=== PATIENT | male | born 1990 | race Caucasian/White ===

== ENCOUNTER 2016-11-28 10:32 | Emergency (ER) | payer SELFPAY ==
[2016-11-28 10:51] VITALS: BP 159/89; PULSE 95; TEMP 99.1; BMI 38.5
--- NOTE | 2016-11-28 12:14 | PDOC ---
History of Present Illness - General Chief Complaint: Pain Stated Complaint: PAIN Time Seen by Provider: 11/28/16 11:06 History Source: Patient Exam Limitations: No Limitations - History of Present Illness Initial Comments: 11/28/16 12:07 Patient is a 26-year-old male, history of gout usually manifesting in the lower extremity presents with pain, stiffness and edema to the left wrist and hand. Woke up with pain yesterday that is progressively getting worse. Thought inititally may have slept on the arm wrong, but denies any trauma. Denies any shortness of breath, no chest pain. No neck pain. Past Medical History: Denies. Allergies: No known allergies Medications: Meloxicam Family History: Non-contributory Social History: Denies smoking, alcohol use, or IVDU Review of Systems GENERAL/CONSTITUTIONAL: No fever or chills. No weakness. No weight change. HEAD, EYES, EARS, NOSE AND THROAT: No change in vision. No ear pain or discharge. No sore throat. CARDIOVASCULAR: No chest pain or shortness of breath. RESPIRATORY: No cough, wheezing, or hemoptysis. GASTROINTESTINAL: No nausea, vomiting, diarrhea or constipation. No rectal bleeding. GENITOURINARY: No dysuria, frequency, or change in urination. MUSCULOSKELETAL: No joint or muscle swelling or pain. No neck or back pain. SKIN : No rash or easy bruising. NEUROLOGIC: No headache, vertigo, loss of consciousness, or loss of sensation. Physical Exam: GENERAL: The patient is awake, alert, and fully oriented, in no acute distress. LUNGS: Breath sounds equal, clear to auscultation bilaterally. No wheezes, and no crackles. HEART: Regular rate and rhythm, normal S1 and S2 without murmur, rub or gallop. ABDOMEN: Soft, nontender, normoactive bowel sounds. No guarding, no rebound. No masses. No bruising or abrasions MUSCULOSKELETAL: Normal range of motion, no edema. No clubbing or cyanosis. No cords, erythema, or tenderness. No CVA Tenderness with fist. NEUROLOGICAL: Cranial nerves II through XII grossly intact. Normal speech, normal gait. SKIN: Warm, Dry, normal turgor, no rashes or lesions noted. Edema, pain to left wrist and hand, no erythema no warmth. Past History - Past Medical History Allergies/Adverse Reactions: Allergies Allergy/AdvReac Type Severity Reaction Status Date / Time No Known Allergies Allergy Verified 11/28/16 10:48 Home Medications: Ambulatory Orders Indomethacin [Indocin -] 50 mg PO TID #21 capsule 11/28/16 Asthma: Yes - Suicide/Smoking/Psychosocial Hx Smoking Status: No Smoking History: Never smoked Have you smoked in the past 12 months: No Number of Cigarettes Smoked Daily: 0 Information on smoking cessation initiated: No Hx Alcohol Use: No Drug/Substance Use Hx: No Substance Use Type: None *Physical Exam - Vital Signs Last Vital Signs Temp Pulse Resp BP Pulse Ox 99.1 F 95 H 18 159/89 100 11/28/16 10:48 11/28/16 10:48 11/28/16 10:48 11/28/16 10:48 11/28/16 10:48 ED Treatment Course - ADDITIONAL ORDERS Additional order review: Laboratory Results 11/28/16 11:22 Uric Acid 8.3 H - RADIOLOGY Radiology Studies Ordered: Category Date Time Status WRIST W/HAND-LEFT* [RAD] Stat Radiology 11/28/16 11:06 Completed Medical Decision Making - Medical Decision Making 11/28/16 12:15 A/P: Patient here for evaluation of nontraumatic swelling and pain to left hand and wrist, no erythema no warmth to area. Does have history of gout however usually manifest and lower extremity Plan: Uric acid Xray X-rays negative for acute pathology, no bony injury, significant soft tissue swelling. Uric acid is 8.3 Laboratory Tests 11/28/16 11:22 Uric Acid 8.3 H Swelling and edema most likely gout will DC patient on Indomethacin. Culture seen 1.2 given in emergency department, 0.6 to be taken in one hour after prescription for indomethacin given to patient, arm sling placed on, patient to follow-up with PMD on Wednesday. Discontinue medication if any stomach upset, vomiting, bleeding, or any other concerns. I discussed the physical exam findings, ancillary test results and final diagnoses with the patient. I answered all of the patient's questions. The patient was satisfied with the care received and felt comfortable with the discharge plan and treatment plan. The patient will call to arrange follow-up and will return to the Emergency Department with any new, persistent or worsening symptoms. *DC/Admit/Observation/Transfer Diagnosis at time of Disposition: Gout attack Qualifiers: Gout site: wrist Gout etiology: unspecified cause Laterality: left Qualified Code(s): M10.9 - Gout, unspecified; M10.9 - Gout, unspecified - Discharge Dispostion Disposition: HOME Condition at time of disposition: Good Admit: No - Prescriptions Prescriptions: Indomethacin [Indocin -] 50 mg PO TID #21 capsule - Referrals Referrals: [facility] [Provider Group] - Patient Instructions Printed Discharge Instructions: Gout (Alternative Therapy), DI for Gout Additional Instructions: Please follow-up with your primary care doctor on Wednesday, please take medication as prescribed. If any increased pain, abdominal pain, vomiting, bleeding, or any other concerns discontinue medication immediately. Take medication with food Ice and elevate extremity when at rest - Post Discharge Activity Forms/Work/School Notes: Back to Work
[2016-11-28] MEDS ORDERED: COLCHICINE 0.6 MG TABLET (FP) PO ONE ×2 (12:37)
[2016-11-28] MEDS ORDERED: INDOMETHACIN 50 MG CAPSULE PO ONE (12:38)
[2016-11-28] MEDS ORDERED: COLCHICINE 0.6 MG TABLET (FP) ONE (12:40)
== END 2016-11-28 13:11 | disposition home or self-care (01) ==
LOC: JERFT 10:32
DX: M10.9 Gout, unspecified (principal)
CPT/HCPCS: 36415; 73110-TC-LT; 73130-TC-LT; 84550; 99281-25

== ENCOUNTER 2017-06-28 20:44 | Emergency (ER) | payer SELFPAY ==
[2017-06-28 20:51] VITALS: BP 150/100; TEMP 99; BMI 37.2
--- NOTE | 2017-06-28 20:51 | PDOC ---
Rapid Medical Evaluation Time Seen by Provider: 06/28/17 20:47 Medical Evaluation: Allergies Allergy/AdvReac Type Severity Reaction Status Date / Time No Known Allergies Allergy Verified 11/28/16 10:48 06/28/17 20:47 I have performed a brief in-person evaluation of this patient. The patient presents with a chief complaint of: sudden onset SOB Pertinent physical exam findings: Lungs CTAB I have ordered the following: ekg, labs, cxr The patient will proceed to the ED for further evaluation. Discharge Disposition - Diagnosis SOB (shortness of breath) - Referrals - Patient Instructions - Post Discharge Activity
[2017-06-28 21:35] LABS: BASO % 1.3 % (0-2.0); EOS % 1.8 % (0-4.5); HEMATOCRIT 42.9 % (35.4-49); HEMOGLOBIN 14.2 GM/dL (11.7-16.9); LYMPH % 32.4 % (8-40); MCH 25.6 pg (25.7-33.7); MEAN CELL VOLUME 77.6 fl (80-96); MEAN PLT VOLUME 7.9 fl (7.5-11.1); MONO % 7.1 % (3.8-10.2); NEUT % 57.4 % (42.8-82.8); PLATELET COUNT 283 K/MM3 (134-434); RBC 5.54 M/mm3 (4.00-5.60); RDW 13.2 % (11.9-15.9); WHITE BLOOD COUNT 8.5 K/mm3 (4.0-10.0)
[2017-06-28 21:47] LABS: INR 0.95 (0.82-1.09); PROTHROMBIN TIME (PATIENT) 10.7 SEC (9.7-13.0)
[2017-06-28 21:57] LABS: ALBUMIN 3.9 g/dl (3.4-5.0); ANION GAP 9 (8-16); BILIRUBIN,TOTAL 0.5 mg/dL (0.2-1.0); BLOOD UREA NITROGEN 16 mg/dL (7-18); CALCIUM 8.6 mg/dL (8.5-10.1); CHLORIDE 103 mmol/L (98-107); CO2 28 mmol/L (21-32); GLUCOSE,RANDOM 120 mg/dL (74-106); MAGNESIUM 2.1 mg/dL (1.8-2.4); POTASSIUM 4.1 mmol/L (3.5-5.1); SGOT/AST 59 U/L (15-37); SGPT/ALT 90 U/L (12-78); SODIUM 140 mmol/L (136-145)
[2017-06-28] MEDS ORDERED: SODIUM CHLORIDE 1,000 ML IV ONE (21:58)
[2017-06-28 22:00] LABS: ALK PHOS 83 U/L (45-117); TOT PROT 7.3 g/dl (6.4-8.2)
--- NOTE | 2017-06-28 22:26 | PDOC ---
History of Present Illness <Ruben Hutson - Last Filed: 06/28/17 23:35> - General History Source: Patient Exam Limitations: No Limitations - History of Present Illness Initial Comments: 06/29/17 01:27 The patient is a 26 year old male, with significant past medical history of Asthma, Gout who presents to the emergency department with sudden onset of SOB today. Patient took and lemonade while driving tonight and suddenly coughed. Patient became severely dyspneic and had to casing puller on the side of the road. Patient was unable to catch his breath and reports his chest caved in. Patient reports this lasted 2-3 minutes with no exacerbating or alleviating factors before resolving. Patient reports two additional episodes, the last one as he was parking while driving and decided to come to the ED for further evaluation. States since arriving in the ED he has felt fine. Patient denies starting any new medications, Pt notes he was in [place] for the weekend and had minmal rest. Denies any prior hx of sob, shane, cp at work (he does fairly physical demanding work for [employer]) Patient denies leg swelling, hemoptysis, calf tenderness or lower extremity edema. Patient denies chest pain, palpitations, diaphoresis, headache or dizziness. Patient denies fever, chills, abdominal pain, nausea, vomit, diarrhea or constipation. Patient denies dysuria, frequency, urgency or hematuria. Patient denies sick contacts or recent travel. Allergies: NKA Past surgical history: None Social history:denies etoh, smoking, recreational drug use PCP: None <Tania Levine - Last Filed: 06/29/17 01:28> - General Chief Complaint: Shortness of Breath Stated Complaint: S.O.B Time Seen by Provider: 06/28/17 20:47 Past History - Past Medical History Asthma: Yes COPD: No - Suicide/Smoking/Psychosocial Hx Smoking Status: No Smoking History: Never smoked Have you smoked in the past 12 months: No Number of Cigarettes Smoked Daily: 0 Hx Alcohol Use: No Drug/Substance Use Hx: No Substance Use Type: None <Ruben Hutson - Last Filed: 06/28/17 23:35> <Tania Levine - Last Filed: 06/29/17 01:28> - Past Medical History Allergies/Adverse Reactions: Allergies Allergy/AdvReac Type Severity Reaction Status Date / Time No Known Allergies Allergy Verified 06/28/17 20:49 Home Medications: Ambulatory Orders Indomethacin [Indocin -] 50 mg PO TID #21 capsule 11/28/16 Review of Systems - Review of Systems Able to Perform ROS?: Yes Comments:: 06/29/17 01:27 CONSTITUTIONAL: No reported: Fever, Chills, Diaphoresis, Generalized Weakness, Malaise, Loss of Appetite HEENT: No reported: Rhinorrhea, Nasal Congestion, Throat Pain, Throat Swelling, Difficulty Swallowing, Mouth Swelling, Ear Pain, Eye Pain, Visual Changes CARDIOVASCULAR: No reported: Chest Pain, Syncope, Palpitations, Irregular Heart Rate, Lightheadedness, Peripheral Edema RESPIRATORY: +SOB. No reported: Cough, SOB with Exertion, Orthopnea, Wheezing, Stridor, Hemoptysis GASTROINTESTINAL: No reported: Abdominal pain, Abdominal Distension, Nausea, Vomiting, Diarrhea, Constipation, Melena, Hematochezia GENITOURINARY: No reported: Dysuria, Frequency, Urgency, Hesitancy, Flank Pain, Genital Pain MUSCULOSKELETAL: No reported: Myalgia, Arthralgia, Joint Swelling, Back pain, Neck Pain SKIN: No reported: Rash, Itching, Pallor HEMATOLOGIC/IMMUNOLOGIC: No reported: Easy Bleeding, Easy Bruising, Lymphadenopathy, Frequent infections ENDOCRINE: No reported: Unexplained Weight Gain, Unexplained Weight Loss, Heat Intolerance , Cold Intolerance NEUROLOGIC: No reported: Headache, Focal Weakness, Paresthesias, Vertigo, Lightheadedness, Unsteady Gait, Seizure, Mental Status Changes, Incontinence PSYCHIATRIC: No reported: Anxiety, Depression <Tania Levine - Last Filed: 06/29/17 01:28> *Physical Exam - Vital Signs Last Vital Signs Temp Pulse Resp BP Pulse Ox 99 F 115 H 20 150/100 99 06/28/17 20:50 06/28/17 20:50 06/28/17 20:50 06/28/17 20:50 06/28/17 20:50 <Ruben Hutson - Last Filed: 06/28/17 23:35> - Vital Signs Last Vital Signs Temp Pulse Resp BP Pulse Ox 99 F 90 18 150/100 98 06/28/17 20:50 06/28/17 23:40 06/28/17 23:40 06/28/17 20:50 06/28/17 23:40 - Physical Exam Comments: 06/29/17 01:27 GENERAL: The patient is awake, alert, and fully oriented, Nontoxic - in no acute distress. HEAD: Normocephalic, atraumatic. EYES: extraocular movements intact, sclera anicteric, conjunctiva clear. ENT: Normal voice, Moist mucous membranes. NECK: Normal range of motion, No JVD LUNGS: Breath sounds equal, clear to auscultation bilaterally. No wheezes, no rhonchi, no rales. HEART: mildly tachycardic (approx 105), no m/r/g ABDOMEN: Soft, nontender, No guarding, no rebound. No CVA tenderness EXTREMITIES: Normal range of motion, no edema. negative homans sign, no calf tenderness.. NEUROLOGICAL: No facial asymmetry, Normal speech, normal gait. PSYCH: Normal mood, normal affect. SKIN: Warm, Dry, normal turgor. <Tania Levine - Last Filed: 06/29/17 01:28> Heart Score/ECG Review - ECG Impressions Comment:: 06/28/17 22:24 Twelve-lead EKG was performed and reviewed by me. There is normal sinus rhythm with a rate of 104 The axis is normal. The intervals are normal. There is normal R wave progression T wave inversion in lead 3 <Ruben Hutson - Last Filed: 06/28/17 23:35> ED Treatment Course - LABORATORY CBC & Chemistry Diagram: 06/28/17 21:01 06/28/17 21:01 - ADDITIONAL ORDERS Additional order review: Laboratory Results 06/28/17 06/28/17 21:01 21:01 PT with INR 10.70 INR 0.95 Sodium 140 Potassium 4.1 Chloride 103 Carbon Dioxide 28 Anion Gap 9 BUN 16 Creatinine 1.0 D Creat Clearance w eGFR > 60 Random Glucose 120 H D Calcium 8.6 Magnesium 2.1 Total Bilirubin 0.5 D AST 59 H D ALT 90 H D Alkaline Phosphatase 83 D Creatine Kinase 281 Creatine Kinase Index 0.6 CK-MB (CK-2) 1.874 Troponin I < 0.02 Total Protein 7.3 Albumin 3.9 06/28/17 21:01 RBC 5.54 MCV 77.6 L MCHC 33.0 RDW 13.2 MPV 7.9 Neutrophils % 57.4 Lymphocytes % 32.4 Monocytes % 7.1 Eosinophils % 1.8 Basophils % 1.3 - RADIOLOGY Radiology Studies Ordered: Category Date Time Status CHEST PA & LAT [RAD] Stat Radiology 06/28/17 22:19 Ordered <CarylRuben - Last Filed: 06/28/17 23:35> - LABORATORY CBC & Chemistry Diagram: 06/28/17 21:01 06/28/17 21:01 - ADDITIONAL ORDERS Additional order review: Laboratory Results 06/28/17 06/28/17 21:01 21:01 PT with INR 10.70 INR 0.95 Sodium 140 Potassium 4.1 Chloride 103 Carbon Dioxide 28 Anion Gap 9 BUN 16 Creatinine 1.0 D Creat Clearance w eGFR > 60 Random Glucose 120 H D Calcium 8.6 Magnesium 2.1 Total Bilirubin 0.5 D AST 59 H D ALT 90 H D Alkaline Phosphatase 83 D Creatine Kinase 281 Creatine Kinase Index 0.6 CK-MB (CK-2) 1.874 Troponin I < 0.02 Total Protein 7.3 Albumin 3.9 06/28/17 21:01 RBC 5.54 MCV 77.6 L MCHC 33.0 RDW 13.2 MPV 7.9 Neutrophils % 57.4 Lymphocytes % 32.4 Monocytes % 7.1 Eosinophils % 1.8 Basophils % 1.3 - Medications Given in the ED: ED Medications Discontinued Medications Generic Name Dose Route Start Last Admin Trade Name Freq PRN Reason Stop Dose Admin Sodium Chloride 1,000 mls @ 1,000 mls/hr 06/28/17 21:58 06/28/17 22:09 Normal Saline - IV 06/28/17 22:57 1,000 mls/hr .Q1H ONE Administration <Tania Levine - Last Filed: 06/29/17 01:28> Medical Decision Making - Medical Decision Making 06/28/17 22:21 26y M hx of childhood asthma presents with complaint of intermittent SOB onset while he was driving, latsing a few minutes associated with cough while he was drinking lemonade, but started again when he was outside the hospital. Currently asymptmoatic. denies any leg swelling, cp, hemoptysis, f/c, recent URI , diaphorsis, palpitations. On exam the patient is well-appearing, in no acute distress, his vitals are noted for mild tachycardia. No PE risk factors, Wells criteria low risk, Symptoms also highly atypical of PE due to the intermittent nature lasting for minutes at a time. Blood work was obtained from triage, will obtain EKG to screen for pulmonary pathology such as pneumothorax EKG to rule out ACS, arrhythmia as IVF for his tachycardia 06/28/17 23:24 pt asymptomatic since arrival pt notes he had a tough weekend at [place] and didnt sleep at all. suspect his symptoms may have been due to fatigue/anxiety. notes he is feelin significnatly better after hydration, his heart rate is also improved currently 96 on the compliance monitor. no problems with his breathing since arrival. will dc with pmd uf pt notes that he was moni in the past his LFTs were slightly eelvated, recommended that he fu with PMD to have it checked. I discussed the physical exam findings, ancillary test results and final diagnoses with the patient. I answered all of the patient's questions. The patient was satisfied with the care received and felt comfortable with the discharge plan and treatment plan. The patient will call their primary care physician within 24 hours to arrange follow-up and will return to the Emergency Department with any new, persistent or worsening symptoms. A portion of this note was documented by scribe services under my direction. I have reviewed the details of the note, within reason, and agree with the documentation with the following case summary and management plan written by me <Ruben Hutson - Last Filed: 06/28/17 23:35> *DC/Admit/Observation/Transfer - Discharge Dispostion Decision to Admit order: No <Ruben Hutson - Last Filed: 06/28/17 23:35> - Attestations Scribe Attestion: 06/29/17 01:28 Documentation prepared by Tania Levine, acting as outside medical sales representative for Ruben Hutson MD <Tania Levine - Last Filed: 06/29/17 01:28> Diagnosis at time of Disposition: SOB (shortness of breath), Elevated liver enzymes - Discharge Dispostion Disposition: HOME Condition at time of disposition: Improved - Referrals Referrals: Brenton Bowman MD [Staff Physician] - - Patient Instructions Printed Discharge Instructions: DI for Shortness of Breath Additional Instructions: Return to the emergency department immediately with ANY new, persistent or worsening symptoms. You had slightly elevated liver enzymes please follow-up with your primary care doctor to have this reassessed You MUST call and follow up with your doctor tomorrow for further evaluation of your symptoms. Results were discussed with you. Please make sure your doctor reviews the results of your emergency evaluation. Print Language: CAMBODIAN - Post Discharge Activity Forms/Work/School Notes: Back to Work
[2017-06-28 23:41] VITALS: PULSE 90
--- NOTE | 2017-06-29 11:54 | EKG ---
Test Reason : Blood Pressure : / mmHG Vent. Rate : 104 BPM Atrial Rate : 104 BPM P-R Int : 148 ms QRS Dur : 090 ms QT Int : 314 ms P-R-T Axes : 040 011 021 degrees QTc Int : 412 ms SINUS TACHYCARDIA OTHERWISE NORMAL ECG NO PREVIOUS ECGS AVAILABLE Confirmed by MD DONALD, SKYE ([id number]) on 06/29/2017 11:53:49 AM Referred By: Confirmed By:SKYE BENNETT MD
== END 2017-06-28 23:40 | disposition home or self-care (01) ==
LOC: JER 20:44
PROC: 3E0337Z Introduction of Electrolytic and Water Balance Substance into Peripheral Vein, Percutaneous Approach (ICD-10-PCS; principal; 2017-06-28)
DX: R06.02 Shortness of breath (principal); R79.89 Other specified abnormal findings of blood chemistry
CPT/HCPCS: 36415; 71046-TC-FY; 80053; 82550; 82553; 83735; 84484; 85025; 85610; 93005; 93010; 99283-25; J7030

== ENCOUNTER 2017-09-23 11:07 | Emergency (ER) | payer SELFPAY ==
[2017-09-23 11:20] VITALS: BMI 37.2
[2017-09-23] MEDS ORDERED: COLCHICINE 0.6 MG TABLET (FP) PO ONE ×2 (11:54→13:13)
[2017-09-23] MEDS ORDERED: predniSONE 20 MG TABLET (UD) PO ONE (11:57)
[2017-09-23] MEDS ORDERED: predniSONE 20 MG TABLET (UD) ONE (12:00)
[2017-09-23] MEDS ORDERED: COLCHICINE 0.6 MG TABLET (FP) ONE ×2 (12:01→13:24)
--- NOTE | 2017-09-23 12:21 | PDOC ---
History of Present Illness - General Chief Complaint: Pain, Acute Stated Complaint: GOUT Time Seen by Provider: 09/23/17 11:32 History Source: Patient Exam Limitations: No Limitations - History of Present Illness Initial Comments: 09/23/17 13:39 Patient is a 26-year-old male with past medical history of gout, who presents to the emergency department today complaining of right ankle pain. He states that his pain started approximately 1 week ago. He states that this feels like his gout flares in the past. Patient states he has not been taking his allopurinol as he is in between insurance and could not afford it. Patient also states that he has right knee pain. He feels like he sprained it as he was compensating for his ankle pain. Denies fevers, chills, numbness and tingling to the extremities, calf pain, calf swelling, smoking history, recent travel. Past History - Travel Traveled outside of the country in the last 30 days: No Close contact w/someone who was outside of country & ill: No - Past Medical History Allergies/Adverse Reactions: Allergies Allergy/AdvReac Type Severity Reaction Status Date / Time No Known Allergies Allergy Verified 09/23/17 11:17 Home Medications: Ambulatory Orders Allopurinol [Zyloprim -] 100 mg PO DAILY #10 tab 09/23/17 Methylprednisolone [Medrol Dose Fabian] 4 mg PO ASDIR #21 tablet 09/23/17 Asthma: Yes COPD: No - Immunization History Immunization Up to Date: Yes - Suicide/Smoking/Psychosocial Hx Smoking Status: No Smoking History: Never smoked Have you smoked in the past 12 months: No Number of Cigarettes Smoked Daily: 0 Hx Alcohol Use: No Drug/Substance Use Hx: No Substance Use Type: None Review of Systems - Review of Systems Able to Perform ROS?: Yes Comments:: 09/23/17 11:54 CONSTITUTIONAL: Absent: fever, chills, diaphoresis, generalized weakness, malaise, loss of appetite HEENT: Absent: rhinorrhea, nasal congestion, throat pain, throat swelling, difficulty swallowing, mouth swelling, ear pain, eye pain, visual Changes CARDIOVASCULAR: Absent: chest pain, loss of consciousness, palpitations, irregular heart rate, peripheral edema RESPIRATORY: Absent: cough, shortness of breath, dyspnea with exertion, orthopnea, wheezing, stridor, hemoptysis GASTROINTESTINAL: Absent: abdominal pain, abdominal distension, nausea, vomiting, diarrhea, constipation, melena, hematochezia GENITOURINARY: Absent: dysuria, frequency, urgency, hesitancy, hematuria, flank pain, genital pain MUSCULOSKELETAL: Present: r ankle pain/swelling, R knee pain Absent: myalgia SKIN: Absent: rash, itching, pallor HEMATOLOGIC/IMMUNOLOGIC: Absent: easy bleeding, easy bruising, lymphadenopathy, frequent infections ENDOCRINE: Absent: unexplained weight gain, unexplained weight loss, heat intolerance, cold intolerance NEUROLOGIC: Absent: headache, focal weakness or paresthesias, dizziness, unsteady gait, seizure, mental status changes, bladder or bowel incontinence PSYCHIATRIC: Absent: anxiety, depression, suicidal or homicidal ideation, hallucinations. Is the patient limited Uzbek proficient: No *Physical Exam - Vital Signs Last Vital Signs Temp Pulse Resp BP Pulse Ox 99 F 90 20 147/70 99 09/23/17 11:14 09/23/17 11:14 09/23/17 11:14 09/23/17 11:14 09/23/17 11:14 - Physical Exam Comments: 09/23/17 11:54 GENERAL: Well developed, well nourished. Awake and alert. No acute distress. HEENT: Normocephalic, atraumatic. PERRLA, EOMI. No conjunctival pallor. Sclera are non- icteric. Moist mucous membranes. Oropharynx is clear. NECK: Supple. Full ROM. No JVD. Carotid pulses 2+ and symmetric, without bruits. No thyromegaly. No lymphadenopathy. MUSCULOSKELETAL Medial and lateral ankle swelling and tenderness to palpation of the R ankle. TTP of the distal knee. ROM of the knee grossly intact. (-) lachmans, posterior/ anterior draw testing, (-) valgus/varus forces. Normal range of motion at all other joints. No CVA tenderness. EXTREMITIES: No cyanosis. No clubbing. No edema. No calf tenderness. SKIN: Warm and dry. Normal capillary refill. No rashes. No jaundice. NEUROLOGICAL: Alert, awake, appropriate. Cranial nerves 2-12 intact. No deficits to light touch and temperature in face, upper extremities and lower extremities. No motor deficits in the in face, upper extremities and lower extremities. Normoreflexic in the upper and lower extremities. Normal speech. Toes are down- going bilaterally. Gait is normal without ataxia. PSYCHIATRIC: Cooperative. Good eye contact. Appropriate mood and affect. ED Treatment Course - LABORATORY CBC & Chemistry Diagram: 09/23/17 11:17 09/23/17 11:17 Medical Decision Making - Medical Decision Making 09/23/17 14:03 Patient is a 26-year-old male past medical history of gout, who presents to the emergency room today with right ankle and right knee pain. On exam patient with tenderness to palpation of the lateral and medial right malleoli of the ankle with associated swelling. No calf tenderness on palpation. Knee exam with tenderness to palpation of the distal knee however special testing is negative at this time. Well's score for DVT is a 0 at this time. Lab work is grossly normal with the exception of the uric acid which is elevated at 9.2. Colchicine and prednisone given the emergency department with improvement of symptoms. We'll discharge home at this time with Dameon wraps, crutches, prednisone and allopurinol for when the patient is feeling better. Return precautions given. Patient his primary care doctor. Patient says all discharge instructions and all questions were answered. *DC/Admit/Observation/Transfer Diagnosis at time of Disposition: Gout attack Qualifiers: Gout site: ankle Gout etiology: unspecified cause Laterality: right Qualified Code(s): M10.9 - Gout, unspecified - Discharge Dispostion Disposition: HOME Condition at time of disposition: Good Decision to Admit order: No - Prescriptions Prescriptions: Allopurinol [Zyloprim -] 100 mg PO DAILY #10 tab Methylprednisolone [Medrol Dose Fabian] 4 mg PO ASDIR #21 tablet - Referrals Referrals: Patrick Jasso MD [Staff Physician] - Tristan Alvarado MD [Staff Physician] - - Patient Instructions Printed Discharge Instructions: DI for Gout Additional Instructions: You have a gout flare today. Your uric acid was high. Please take the prednisone (medrol dose pack) as prescribed. You may take allopurinol once your pain is completely resolved daily for the next 10 days. Please use the crutches until your pain results. Wear the Dameon wrap for added support. Please follow-up with your primary care doctor this week. Return to the emergency department if you have worsening pain, increased swelling, fevers, chills, or if you have any changes in your symptoms. - Post Discharge Activity Forms/Work/School Notes: Back to Work
[2017-09-23 12:35] LABS: BASO % 0.7 % (0-2.0); EOS % 0.9 % (0-4.5); HEMATOCRIT 45.8 % (35.4-49); HEMOGLOBIN 15.4 GM/dL (11.7-16.9); LYMPH % 21.9 % (8-40); MCH 26.1 pg (25.7-33.7); MCHC 33.6 g/dl (32.0-35.9); MEAN CELL VOLUME 77.6 fl (80-96); MEAN PLT VOLUME 7.7 fl (7.5-11.1); MONO % 7.5 % (3.8-10.2); PLATELET COUNT 349 K/MM3 (134-434); RDW 12.8 % (11.9-15.9); WHITE BLOOD COUNT 9.9 K/mm3 (4.0-10.0)
[2017-09-23 12:54] LABS: ALBUMIN 4.3 g/dl (3.4-5.0); ALK PHOS 80 U/L (45-117); ANION GAP 10 (8-16); BILIRUBIN,TOTAL 0.8 mg/dL (0.2-1.0); BLOOD UREA NITROGEN 16 mg/dL (7-18); CALCIUM 9.4 mg/dL (8.5-10.1); CHLORIDE 103 mmol/L (98-107); CO2 28 mmol/L (21-32); CREATININE 0.9 mg/dL (0.7-1.3); GLUCOSE,RANDOM 98 mg/dL (74-106); POTASSIUM 4.6 mmol/L (3.5-5.1); SGOT/AST 31 U/L (15-37); SGPT/ALT 68 U/L (12-78); SODIUM 141 mmol/L (136-145); TOT PROT 7.9 g/dl (6.4-8.2); URIC ACID 9.2 mg/dL (2.6-7.2)
[2017-09-23 12:57] LABS: URINE APPEARANCE CLEAR; URINE BILIRUBIN NEGATIVE (<2.0 mg/dL); URINE COLOR YELLOW; URINE GLUCOSE (UA) NEGATIVE (NEGATIVE); URINE KETONE NEGATIVE (NEGATIVE); URINE LEUK ESTERASE NEGATIVE (NEGATIVE); URINE NITRITE NEGATIVE (NEGATIVE); URINE PROTEIN NEGATIVE (NEGATIVE); URINE UROBILINOGEN NEGATIVE mg/dL (0.2-1.0)
[2017-09-23 13:41] VITALS: BP 123/75; PULSE 93; TEMP 98.6
== END 2017-09-23 13:48 | disposition home or self-care (01) ==
LOC: JER 11:07
DX: M10.9 Gout, unspecified (principal)
CPT/HCPCS: 36415; 80053; 81003; 84550; 85025; 99283-25

== ENCOUNTER 2018-02-27 19:53 | Emergency (ER) | payer OTHER ==
[2018-02-27 20:00] VITALS: BP 131/93; PULSE 98; TEMP 98.2; BMI 38.0
[2018-02-27] MEDS ORDERED: COLCHICINE 0.6 MG TABLET (FP) PO ONE ×2 (21:24→21:32)
[2018-02-27] MEDS ORDERED: COLCHICINE 0.6 MG TABLET (FP) ONE ×2 (21:26→21:34)
--- NOTE | 2018-02-27 21:28 | PDOC ---
History of Present Illness - General Chief Complaint: Pain Stated Complaint: GOUT Time Seen by Provider: 02/27/18 21:19 History Source: Patient Exam Limitations: Clinical Condition - History of Present Illness Initial Comments: 02/27/18 21:24 Patient with history of gout present with complaint of gout flareup to left foot since yesterday. Patient reported run out of his gout medications. he reported pain is localized to lateral side of left foot which is where he always get a pain when he gets his gout flareup. Patient denies any trauma or injuries to foot. Timing/Duration: 24 hours Past History - Past Medical History Allergies/Adverse Reactions: Allergies Allergy/AdvReac Type Severity Reaction Status Date / Time No Known Allergies Allergy Verified 02/27/18 20:00 Home Medications: Ambulatory Orders Colchicine [Colcrys] 0.6 mg PO BID PRN #20 tablet 02/27/18 Asthma: Yes COPD: No - Immunization History Immunization Up to Date: Yes - Suicide/Smoking/Psychosocial Hx Smoking Status: No Smoking History: Never smoked Have you smoked in the past 12 months: No Number of Cigarettes Smoked Daily: 0 Information on smoking cessation initiated: No Hx Alcohol Use: No Drug/Substance Use Hx: No Substance Use Type: None Review of Systems - Review of Systems Able to Perform ROS?: Yes Is the patient limited [place] proficient: No Constitutional: No: Fever HEENTM: No: Symptoms Reported Respiratory: No: Symptoms reported Cardiac (ROS): No: Symptoms Reported ABD/GI: No: Symptoms Reported Musculoskeletal: Yes: See HPI, Muscle Pain (left laterall side of mid-foot). No : Muscle Weakness Neurological: No: Numbness, Paresthesia, Tingling All Other Systems: Reviewed and Negative *Physical Exam - Vital Signs Last Vital Signs Temp Pulse Resp BP Pulse Ox 98.2 F 98 H 18 131/93 97 02/27/18 19:57 02/27/18 19:57 02/27/18 19:57 02/27/18 19:57 02/27/18 19:57 - Physical Exam Comments: 02/27/18 21:26 GENERAL: Well developed, well nourished. Awake and alert. No acute distress. CARDIOVASCULAR: Regular rate and rhythm. No murmurs, rubs, or gallops. PULMONARY: No evidence of respiratory distress. Lungs clear to auscultation bilaterally. No wheezing, rales or rhonchi. ABDOMINAL: Soft. Non-tender. Non-distended. No rebound or guarding. No organomegaly. Normoactive bowel sounds MUSCULOSKELETAL : mild tenderness over dorsal-lateral aspect of left mid-foot with mild erythema over lateral aspect of 3-5th metatarsals of left foot. SKIN: Warm and dry. Normal capillary refill. No rashes. No jaundice. NEUROLOGICAL: Alert, awake, appropriate. No motor deficits in the lower extremities. Gait is normal without ataxia. PSYCHIATRIC: Cooperative. Good eye contact. Appropriate mood and affect. General Appearance: Yes: Nourished, Appropriately Dressed, Mild Distress Moderate Sedation - Procedure Monitoring Vital Signs: Procedure Monitoring Vital Signs Temperature 98.2 F 02/27/18 19:57 Pulse Rate 98 H 02/27/18 19:57 Respiratory Rate 18 02/27/18 19:57 Blood Pressure 131/93 02/27/18 19:57 O2 Sat by Pulse Oximetry (%) 97 02/27/18 19:57 Medical Decision Making - Medical Decision Making 02/27/18 21:28 Patient with history of gout present with complaint of gout flareup to left foot since yesterday. Patient reported run out of his gout medications and request refill. Exam significant for mild tenderness over dorsal-lateral aspect of left mid- foot with mild erythema over lateral aspect of 3-5th metatarsals of left foot. 02/27/18 21:28 colchicine 1.2 milligrams by mouth given for gout.Refill of colchicine sent to patient pharmacy. Patient to follow-up with PCP in 2-3 days for reassessment. 02/27/18 21:33 *DC/Admit/Observation/Transfer Diagnosis at time of Disposition: Gout attack Qualifiers: Gout site: foot Gout etiology: idiopathic Laterality: left Qualified Code(s): M10.072 - Idiopathic gout, left ankle and foot - Discharge Dispostion Disposition: HOME Condition at time of disposition: Stable Decision to Admit order: No - Prescriptions Prescriptions: Colchicine [Colcrys] 0.6 mg PO BID PRN #20 tablet PRN Reason: gout attack - Referrals - Patient Instructions Printed Discharge Instructions: DI for Gout Additional Instructions: Take one tablet of medication and hour from now, then one every 12 hours as needed for gout. Follow-up with primary care - Post Discharge Activity
== END 2018-02-27 21:36 | disposition home or self-care (01) ==
LOC: JERFT 19:53
DX: M10.072 Idiopathic gout, left ankle and foot (principal)
CPT/HCPCS: 99281-25

== ENCOUNTER 2018-03-05 19:37 | Emergency (ER) | payer OTHER ==
[2018-03-05 19:48] VITALS: BP 140/88; PULSE 100; TEMP 98; BMI 37.8
--- NOTE | 2018-03-05 20:13 | PDOC ---
History of Present Illness - General Chief Complaint: Toothache Stated Complaint: TOOTH PAIN Time Seen by Provider: 03/05/18 19:57 Past History - Past Medical History Allergies/Adverse Reactions: Allergies Allergy/AdvReac Type Severity Reaction Status Date / Time No Known Allergies Allergy Verified 02/27/18 20:00 Home Medications: Ambulatory Orders Ibuprofen [Advil -] 600 mg PO QID 03/05/18 Asthma: Yes COPD: No - Immunization History Immunization Up to Date: Yes - Suicide/Smoking/Psychosocial Hx Smoking Status: No Smoking History: Never smoked Have you smoked in the past 12 months: No Number of Cigarettes Smoked Daily: 0 Information on smoking cessation initiated: No Hx Alcohol Use: No Drug/Substance Use Hx: No Substance Use Type: None *Physical Exam - Vital Signs Last Vital Signs Temp Pulse Resp BP Pulse Ox 98.0 F 100 H 16 140/88 16 L 03/05/18 19:37 03/05/18 19:37 03/05/18 19:37 03/05/18 19:37 03/05/18 19:37 - Physical Exam General Appearance: No: Apparent Distress HEENT: positive: Other (Pain at tooth #3, plaque building around teeth, no gum swelling, no cavities noted, no sign of dental abscess, no cracked tooth noted) Moderate Sedation - Procedure Monitoring Vital Signs: Procedure Monitoring Vital Signs Temperature 98.0 F 03/05/18 19:37 Pulse Rate 100 H 03/05/18 19:37 Respiratory Rate 16 03/05/18 19:37 Blood Pressure 140/88 03/05/18 19:37 O2 Sat by Pulse Oximetry (%) 16 L 03/05/18 19:37 Medical Decision Making - Medical Decision Making 27 y/o M with hx of gout presents with R upper molar toothache x 1 day. Denies trauma. Took Motrin 600 mg just before coming to ED. Is seeing his dentist in 2 days for removal of wisdom teeth, PE unremarkable Advised f/u with his dentist as scheduled 03/05/18 20:09 *DC/Admit/Observation/Transfer Diagnosis at time of Disposition: Toothache - Discharge Dispostion Disposition: HOME Condition at time of disposition: Stable Decision to Admit order: No - Referrals - Patient Instructions Printed Discharge Instructions: DI for Dental Pain Additional Instructions: Thank you for choosing [facility]. It was a pleasure taking care of you. You may take Motrin 600 mg every 4 hours by mouth as needed for mild to moderate pain. Take Motrin with food. Follow-up with your dentist on 03/07 as scheduled Return to the Emergency Department if your symptoms worsen or persist or have other concerning symptoms. - Post Discharge Activity
== END 2018-03-05 20:18 | disposition home or self-care (01) ==
LOC: JERFT 19:37 → JER 19:37 → JERFT 20:18
DX: K08.89 Other specified disorders of teeth and supporting structures (principal); Z87.39 Personal history of other diseases of the musculoskeletal system and connective tissue
CPT/HCPCS: 99281-25

== ENCOUNTER 2018-05-19 21:17 | Emergency (ER) | payer OTHER ==
[2018-05-19 21:31] VITALS: BP 156/94; PULSE 105; TEMP 98.7; BMI 37.8
--- NOTE | 2018-05-19 21:32 | PDOC ---
Rapid Medical Evaluation Chief Complaint: Abscess Boil Medical Evaluation: Allergies Allergy/AdvReac Type Severity Reaction Status Date / Time No Known Allergies Allergy Verified 02/27/18 20:00 05/19/18 21:27 I have performed a brief in-person evaluation of this patient. The patient presents with a chief complaint of: ? ingrown hair ~ 3 days ago, worsened- seen at [facility] and started Clindamycin- States opened this AM - no hx of lesions. Pertinent physical exam findings: pointing lesion to left posterior pinna/ neck No fevers I have ordered the following: Boostrix The patient will proceed to the ED for further evaluation. Discharge Disposition - Diagnosis Abscess - Discharge Dispostion Disposition: HOME Condition at time of disposition: Stable - Referrals Referrals: Tristan Alvarado MD [Staff Physician] - - Patient Instructions Printed Discharge Instructions: DI for Incision and Drainage of a Skin Abscess Additional Instructions: You have an abscess cellulitis. This is a skin infection. The abscess portion was drained today. Please continue the clindamycin as previously prescribed Please avoid shaving the skin around the area of redness. You may take Tylenol or Motrin as needed for pain. Follow the dosing instructions on the bottle Return in 2 days for a wound check Return to the emergency department if you have worsening redness, fevers, increasing pain, or have any changes in your symptoms. - Post Discharge Activity Work/School Note: Back to Work
[2018-05-19] MEDS ORDERED: DIPHTH,PERTUSS(ACELL),TET 0.5 ML DISP.SYRIN IM ONE (21:33)
[2018-05-19] MEDS: DIPHTH,PERTUSS(ACELL),TET 0.5 ML DISP.SYRIN IM ONE ×2 (21:48→21:52)
--- NOTE | 2018-05-19 22:50 | PDOC ---
History of Present Illness - General Chief Complaint: Wound Stated Complaint: CYST ON LEFT SIDE OF NECK Time Seen by Provider: 05/19/18 21:49 Past History - Past Medical History Allergies/Adverse Reactions: Allergies Allergy/AdvReac Type Severity Reaction Status Date / Time No Known Allergies Allergy Verified 05/19/18 21:31 Home Medications: Ambulatory Orders Clindamycin [Cleocin -] 300 mg PO TID 05/19/18 Asthma: Yes COPD: No - Immunization History Immunization Up to Date: Yes - Suicide/Smoking/Psychosocial Hx Smoking Status: No Smoking History: Never smoked Have you smoked in the past 12 months: No Number of Cigarettes Smoked Daily: 0 Information on smoking cessation initiated: No Hx Alcohol Use: No Drug/Substance Use Hx: No Substance Use Type: None *Physical Exam - Vital Signs Last Vital Signs Temp Pulse Resp BP Pulse Ox 98.7 F 105 H 18 156/94 100 05/19/18 21:28 05/19/18 21:28 05/19/18 21:28 05/19/18 21:28 05/19/18 21:28 ED Treatment Course - Medications Given in the ED: ED Medications Discontinued Medications Generic Name Dose Route Start Last Admin Trade Name Freq PRN Reason Stop Dose Admin Diphtheria/Tetanus/Acell Pertussis 0.5 ml 05/19/18 21:32 05/19/18 21:52 Boostrix - IM 05/19/18 21:33 0.5 ml ONCE ONE Administration *DC/Admit/Observation/Transfer Diagnosis at time of Disposition: Abscess - Discharge Dispostion Disposition: HOME Condition at time of disposition: Stable Decision to Admit order: No - Referrals Referrals: Tristan Alvarado MD [Staff Physician] - - Patient Instructions Printed Discharge Instructions: DI for Incision and Drainage of a Skin Abscess Additional Instructions: You have an abscess cellulitis. This is a skin infection. The abscess portion was drained today. Please continue the clindamycin as previously prescribed Please avoid shaving the skin around the area of redness. You may take Tylenol or Motrin as needed for pain. Follow the dosing instructions on the bottle Return in 2 days for a wound check Return to the emergency department if you have worsening redness, fevers, increasing pain, or have any changes in your symptoms. - Post Discharge Activity Forms/Work/School Notes: Back to Work
== END 2018-05-19 23:01 | disposition home or self-care (01) ==
LOC: JERFT 21:17
PROC: 0J950ZZ Drainage of Left Neck Subcutaneous Tissue and Fascia, Open Approach (ICD-10-PCS; principal; 2018-05-19)
PROC: 3E0134Z Introduction of Serum, Toxoid and Vaccine into Subcutaneous Tissue, Percutaneous Approach (ICD-10-PCS; 2018-05-19)
DX: L02.11 Cutaneous abscess of neck (principal); L03.221 Cellulitis of neck
CPT/HCPCS: 90715; 99281-25

== ENCOUNTER 2018-05-21 18:41 | Emergency (ER) | payer OTHER ==
[2018-05-21 18:55] VITALS: BP 153/54; PULSE 105; TEMP 98.5; BMI 37.8
--- NOTE | 2018-05-21 19:10 | PDOC ---
Suture Removal/Wound Check HPI - History of Present Illness Chief Complaint: Wound Stated Complaint: WOUND CHECK Time Seen by Provider: 05/21/18 18:56 History Source: Yes: Patient Exam Limitations: Yes: No Limitations Treated at: [facility] ED - Previous ED Treatment Type of procedure performed on last visit: Yes: I&D of Abscess Tetanus Immunization: Yes: Up to Date Antibiotics Prescribed: Yes Past History - Travel Traveled outside of the country in the last 30 days: No Close contact w/someone who was outside of country & ill: No - Past Medical History Allergies/Adverse Reactions: Allergies Allergy/AdvReac Type Severity Reaction Status Date / Time No Known Allergies Allergy Verified 05/19/18 21:31 Home Medications: Ambulatory Orders Clindamycin [Cleocin -] 300 mg PO TID 05/19/18 Asthma: Yes COPD: No - Immunization History Immunization Up to Date: Yes - Suicide/Smoking/Psychosocial Hx Smoking Status: No Smoking History: Never smoked Have you smoked in the past 12 months: No Number of Cigarettes Smoked Daily: 0 Hx Alcohol Use: No Drug/Substance Use Hx: No Substance Use Type: None Suture Removal/Wound Check PE - Physical Exam Laceration/Wound Check Symptoms: reports: Discharge (serosanguanous drainage), Improved. denies: Fever, Chills, Redness, Bleeding Current Severity Level: None Maximum Severity Level: None Pain Localization: None Location of Laceration/Wound: left: Face (jaw line, packing in place) *Review of Systems - Review of Systems Constitutional: No: Chills, Fever, Weakness Integumentary: No: Erythema, Pruritus, Rash, Other (drainage) *Physical Exam - Vital Signs Last Vital Signs Temp Pulse Resp BP Pulse Ox 98.5 F 105 H 17 153/54 L 95 05/21/18 18:52 05/21/18 18:52 05/21/18 18:52 05/21/18 18:52 05/21/18 18:52 - Physical Exam General Appearance: Yes: Nourished, Appropriately Dressed. No: Apparent Distress Integumentary: positive: Normal Color, Dry, Warm, Erythema, Other (packing in place to L lateral jaw) Medical Decision Making - Medical Decision Making 05/21/18 19:10 The patient is a 27-year-old male who presents to the ER today for evaluation of an I&D performed 2 days ago by myself. Packing is still intact. Denies fevers , redness to the site, jaw pain. He is taking the clindamycin. A/P: Wound check Packing removed from the left lateral jaw. Some serosanguineous fluid drained. Overall improved since initial visit for abscess. Discharge home to continue clindamycin and follow up with his primary care doctor. I discussed the physical exam findings, ancillary test results and final diagnoses with the patient. I answered all of the patient's questions. The patient was satisfied with the care received and felt comfortable with the discharge plan and treatment plan. The Patient agrees to follow up with the primary care physician/specialist within 24-72 hours. Return precautions were given. *DC/Admit/Observation/Transfer Diagnosis at time of Disposition: Wound check, abscess - Discharge Dispostion Disposition: HOME Condition at time of disposition: Stable Decision to Admit order: No - Referrals Referrals: Tristan Alvarado MD [Staff Physician] - - Patient Instructions Printed Discharge Instructions: DI for Incision and Drainage of a Skin Abscess Additional Instructions: Your abscess is healing well Keep it covered at work Continue to keep it clean and dry Continue the Clindamycin Follow up with your primary care doctor. Return to the ED if you have fevers ,chills, worsening redness, jaw pain or if you have any changes in your symptoms - Post Discharge Activity
== END 2018-05-21 19:33 | disposition home or self-care (01) ==
LOC: JERFT 18:41
DX: Z48.817 Encounter for surgical aftercare following surgery on the skin and subcutaneous tissue (principal); Z48.01 Encounter for change or removal of surgical wound dressing
CPT/HCPCS: 99281-25